=== PATIENT | male | born 1965 | race Caucasian/White ===

== ENCOUNTER → 2018-12-28 | Outpatient (CLI) | payer BC ==
--- NOTE | 2018-12-28 11:46 | CR ---
DATE OF SERVICE: 12/28/18 CLINICAL DATA: S/P TOTAL LEFT KNEE REPLACEMENT LEFT KNEE: Comparison is made to a prior exam dated 09/13/18. The patient is status post left total knee arthroplasty. The prosthesis appears intact. There is a large joint effusion. No acute abnormalities. [id number] [facility]
== END ==
LOC: LB.DI 10:55
PROVIDERS: ATTEND Physician Assistant
DX: Z47.1 Aftercare following joint replacement surgery (principal); M25.462 Effusion, left knee; Z96.652 Presence of left artificial knee joint
CPT/HCPCS: 73562-LT

== ENCOUNTER 2021-12-22 21:44 | Emergency (ER) | payer BC ==
[2021-12-22] MEDS: Metoprolol Tartrate 50 MG Tab PO ONE (22:10)
[2021-12-22] MEDS: hydrOXYzine HCl 25 MG Tab PO ONE (22:15)
[2021-12-22] MEDS: Acetaminophen 500 MG Tab PO ONE (22:15)
[2021-12-22] MEDS ORDERED: Lisinopril 5 MG Tab ONE (22:57)
[2021-12-22] MEDS: Lisinopril 5 MG Tab PO ONE (22:58)
== END 2021-12-22 23:26 | disposition home or self-care (01) ==
LOC: LB.ED 21:44
DX: I10 Essential (primary) hypertension (principal)
CPT/HCPCS: 99283; A9270-GY